=== PATIENT | female | born 1970 | race Caucasian/White ===

== ENCOUNTER → 2016-04-17 | Outpatient (CLI) | payer BC | LOC: MC.RAD 15:20 | DX: Z12.31 Encounter for screening mammogram for malignant neoplasm of breast (principal); N63 Unspecified lump in breast ==

== ENCOUNTER → 2016-04-21 | Outpatient (CLI) | payer BC | LOC: MC.RAD 12:54 | DX: R92.8 Other abnormal and inconclusive findings on diagnostic imaging of breast (principal) ==